=== PATIENT | female | born 2005 | race African-American/Black ===

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

== ENCOUNTER 2024-05-01 15:09 | Emergency (ER) | payer MEDICAID ==
[~2024-05-01] VITALS: Ht 162.6 cm; Wt 91.0 kg
[~2024-05-01 15:09] MED LIST: NAPR-1129 MT
[2024-05-01 15:24] VITALS: BP 107/65; PULSE 72; RESP 16; TEMP 37; O2SAT 100
[2024-05-01] MEDS: ACETAMINOPHEN 325MG TABLET PO ONE (18:15)
[2024-05-01] MEDS: IBUPROFEN 400MG TABLET PO ONE (18:15)
== END 2024-05-01 18:18 | disposition home or self-care (01) ==
LOC: ER 15:09
DX: M25.562 Pain in left knee (principal); Z79.899 Other long term (current) drug therapy; X58.XXXA Exposure to other specified factors, initial encounter; Y93.56 Activity, jumping rope; Y92.39 Other specified sports and athletic area as the place of occurrence of the external cause; Y99.8 Other external cause status
CPT/HCPCS: 73562; 99283